=== PATIENT | female | born 1985 | race Caucasian/White ===

== ENCOUNTER 2016-06-25 14:07 | Day surgery (SDC) | payer OTHER ==
[2016-06-25] VITALS (9 sets, daily range): BP systolic 130–152; BP diastolic 73–89; PULSE 86–94; RESP 12–17; O2SAT 98–100
[~2016-06-25] VITALS: Ht 172.7 cm; Wt 197.7 kg
[2016-06-25] MEDS ORDERED: Ketamine 10 mg/mL 20 mL Inj ONE (14:08)
[2016-06-25] MEDS ORDERED: Propofol 10,000 mCg/mL 20 mL Inj ONE (14:08)
[2016-06-25] MEDS ORDERED: fentaNYL-PF 50 mCg/mL 2 mL Inj ONE (14:08)
[2016-06-25] MEDS ORDERED: Lactated Ringer's 1,000 ML IV ONE (14:30)
[2016-06-25] MEDS ORDERED: AMOX-366 PO (15:09)
[2016-06-25] MEDS ORDERED: IBUP200C PO (15:09)
[2016-06-25] MEDS ORDERED: Bupivacaine-MPF 0.25%/EPI 30 mL Inj INFILTRATE ONE (17:29)
[2016-06-25] MEDS ORDERED: Ondansetron 2 mg/mL 2 mL Inj IVPUSH PRN (17:45)
[2016-06-25] MEDS ORDERED: EPHEDrine Sulfate 50 mg/mL Inj IVPUSH PRN (17:45)
[2016-06-25] MEDS ORDERED: Lactated Ringer's 500 ML IV PRN (17:45)
[2016-06-25] MEDS ORDERED: Dexamethasone 4 mg/mL Inj IVPUSH PRN (17:45)
[2016-06-25] MEDS ORDERED: HYDROmorphone 1 mg/mL Inj IVPUSH PRN (17:45)
[2016-06-25] MEDS ORDERED: Lactated Ringer's 1,000 ML IV SCH (17:45)
[2016-06-25] MEDS ORDERED: MetoCLOpramide 5 mg/mL 2 mL Inj IVPUSH PRN (17:45)
[2016-06-25] MEDS ORDERED: Phenylephrine 10,000 mCg/mL Inj IVPUSH PRN (17:45)
--- NOTE | 2016-06-25 17:45 | PCM.HPANE ---
Patient Data Surgeon Admitting Provider: Attending Provider:Ron Olmos MD Primary Care Physician:Srinivasan Other Provider:Evita Leyva Anesthesia Reason for Visit Left Breast Abscess Ht/WT & BMI Height (Feet): 5 Height (Inches): 8 Weight (Kilograms): 197.7 Body Mass Index 66.00 Allergies Coded Allergies: No Known Drug Allergies (Verified Allergy, Unknown, 06/25/16) Past Anesthesia History Anesthesia History: Positive for:: Abnormal Airway, Difficult Intubation ( possibly, given BMI of 66), Denies:: Anesthesia Reactions, Fam Anesthesia Reaction, Fam Malignant Hypertherm, Malignant Hyperthermia Diabetes History Hx Diabetes?: No MRSA MRSA: Yes Medications Hypertension Medication: No Home Meds Incl Beta Precious: No Reported Medications Amoxicillin/Clav K 875-125 mg (Augmentin 875-125 mg)1 Each Tablet1 Tablet PO BID #20 TABLET Ref 0 06/25/16 Ibuprofen 200 Mg [id number] Mg PO QID PRN For Pain Ref 0 06/25/16 History History of ENT Problems?: Yes HEENT History: Positive for:: Abnormal Airway Denies:: Cataracts Difficult Intubation Dysphagia Glaucoma Hearing Problem Sinus Problem TMJ Denture Type: None Teeth Condition: Within Normal Limits Hx of Heart Problems?: No Cardiovascular History: Denies:: AICD Abdominal Aortic Aneurism Atrial Fibrillation Cardiac Surgery Chest Pain Congestive Heart Failure Coronary Artery Disease Edema Heart Murmur Hypertension Irregular Heartbeat Pacemaker Peripheral Vascular Rheumatic Fever Thrombophlebitis Valvular Heart Disease Hx of Respiratory Problem?: No Respiratory History: Positive for:: Asthma (CHILD INDUCED ASTHMA ) Denies:: COPD Chest Surgery Cough Dyspnea Emphysema Hemoptysis Oxygen Administration Pneumonia Pulmonary Embolism Tuberculosis Use of C-PAP Machine Use of Inhalers / NEBS Hx Neurologic Problems?: No Neurological History: Denies:: Alzheimer's Disease CVA Dementia Dizziness Headaches Multiple Sclerosis Parkinson's Disease Seizures TIA Hx of GI Problems?: No Hx of Problems?: No Genitourinary History: Denies:: HX of Hemodialysis Kidney Stones Urinary Tract Infection HX of Peritoneal Dialysis: No Female Hx: Positive for:: Problems with Breasts? (LEFT BREAST MASTITIS) Denies:: Currently Endometriosis Pelvic Inflammatory Skin History: Positive for:: History Skin Disorders? (MRSA HISTORY) Denies:: Pressure Ulcers Hx Musculoskeletal Problems?: No Musculoskeletal History: Denies:: Back Injury Degenerative Joint Fibromyalgia Joint Replacement Musculoskeletal Trauma Myasthenia Gravis Osteoarthritis Rheumatoid Arthritis Systemic Lupus Hx of Psycho/Social Problems?: No Psycho Social History: Positive for:: Hx Depression (CURRENTLY NOT TAKING MEDICATIONS) Denies:: Anxiety Bipolar Disorder Suicide Attempt Hx Surgeries?: Yes (CSECTION, TA) Hx Any Other Health Problems?: No Other History: Positive for:: Hospitalization (C SECTION, T&A) Denies:: Cancer Endocrine Disease Thyroid Disease History Blood Transfusions: Positive for:: Accept Blood Products? Denies:: Blood Transfuse Reaction Blood Transfusions Hx Diabetes: No Hx Alcohol Use: Yes (SOCIALLY ON OCCASSION)Hx Substance Use: NoHave You Smoked inLast 12 mo: Yes (MARIJUANA) Stop/Bang Treated for Sleep Apnea?: No Do You Have a CPAP Machine?: No S-Snoring: Do You Snore Loudly: Yes T-Tired: feel tired, fatigued: Yes O-Obsered: Observed not breath: No P-Blood Pressure: treated: No B- Body Mass Index > 35 kg/m2: No A- Age over 50: No N- Neck Large Circumference: No G- Gender Male: No TROY Total Score: 2 TROY Risk Assessment: Low Risk, <3 Yes Risk Assessment Category Category 1A: Patient has history of documented sleep apnea, and HAS NOT received any narcotic, sedative or anesthesia administration during this stay. Category 1B: Patient has history of documented sleep apnea, and HAS received any narcotic , sedative or anesthesia administration during this stay Category 2: Patient has SUSPECTED Obstructive Sleep Apnea, and HAS received any narcotic , sedative or anesthesia administration during this stay. Category 3: Patient has SUSPECTED Obstructive Sleep Apnea and HAS NOT received narcotic, sedative or anesthesia administration during this stay. Category 4: Outpatient in Procedural Areas with known sleep apnea or who screen positive for High Risk via the STOP/BANG questionnaire. Exam Exam Vital Signs Vital Signs Date Time Temp Pulse Resp B/P Pulse Ox O2 Delivery O2 Flow Rate FiO2 06/25/16 14:30 36.5 90 16 138/77 100 Room Air General Appearance: Alert, Oriented X3, Cooperative, Mild Distress HEENT/AIRWAY: MP 2 Lungs: Clear to Auscultation, Normal Air Movement Heart: Exam Unremarkable, Regular Rate/Rhythm, No Murmurs/Rubs/Gallops Meds/Labs/Diagnostics Admission Meds Current Medications [facility] Last administered on t 14:30; Start 06/25/16 at 14:30; Stop 06/25/16 at 15:07; Status DC Plan Impression Patient chart reviewed, patient interviewed and anesthestic plan with risks, benefits, and alternatives discussed, and informed consent obtained. ASA Physical Status: ASA3 Severe Disease (BMI 67) Anesthetic Plan: MAC Bene/Risks/Altern/Consents: Yes HP Complete Prior to Induction: Yes Harshad Morrissey MD June 25, 2016 17:45
[2016-06-25] MEDS ORDERED: oxyCODONE-Acetamin 5-325 mg Tablet PO PRN (17:55)
--- NOTE | 2016-06-25 17:55 | PCM.DISURG ---
Surgical Discharge Instruction Date of Service June 25, 2016 Dates of Hospitalization Date of Hospital Admission Providers Admitting Physician: Primary Care Physician: Srinivasan Attending Physician: Ron Olmos MD Discharge Diagnosis Discharge Diagnosis Left breast abscess Diet Discharge Diet: No restrictions Activity Discharge Activity-General: No restrictions Dressing and Incisional Care Dressing Instructions: change outer dressing every 8 hours, or more frequently as needed Hygiene: May shower Follow Up Plan Follow Up Plan In the wound healing center on Thursday or Thursday for a wound check, and possible drain removal Call your provider for: Fever (over 101.5) Ron Olmos MD June 25, 2016 17:55
[2016-06-25] MEDS: fentaNYL-PF 50 mCg/mL 2 mL Inj IVPUSH PRN ×2 (18:05→18:20)
--- NOTE | 2016-06-25 20:23 | PCM.SURGOP ---
Surgical Operative Report Date of Service: June 25, 2016 Pre Operative Diagnosis Left breast abscess Post Operative Diagnosis Same Procedure: Incision and drainage of left breast abscess, complex Surgeon and Interactive Graphic Designer: Surgeon: Ron Olmos MD Assistants: Pardeep Mares PA-C Indication for Procedure 30-year-old woman with morbid obesity with a body mass index of 66, who has been treated as an outpatient and [facility] for left breast abscess, who came back today to the surgery clinic today with increasing pain, induration, and erythema of the left breast despite oral antibiotics. Because of her body mass index, she could not be cared for there surgically, and she was transferred to [facility] for outpatient incision and drainage of her left breast abscess. After discussion of risks and benefits, she agreed to proceed. Findings: There was a retroareolar cavity measuring approximately 2 cm containing some purulent fluid, but mainly thin fluid, consistent with MRSA infection. Procedure Details Procedural sedation was achieved using light monitored anesthesia care. The left breast was prepped and draped in wide sterile fashion. A procedural pause was performed according to the SCOAP checklist, and all were found to be in agreement. The skin was anesthetized with quarter percent Marcaine with epinephrine around the left side of the areolar border. She did not tolerate this very well. Once the skin had been adequately anesthetized, a curvilinear circumareolar incision was made on the left lateral side. Dissection was carried through the subcutaneous tissue into the retroareolar space, as the abscess cavity was entered and drained. Loculations were broken up. Fluid was aspirated and sent for culture and Gram stain. A lacrimal duct probe was passed through the nipple orifice which was also spontaneously draining, to make sure that they communicated, and that there were no additional pockets of infection. The cavity was irrigated and suctioned. The wound was then packed with a half-inch Rexford drain, which was secured to the skin with interrupted 3-0 nylon suture. Sterile dressings were applied. At the end of the case all needle and sponge counts were correct 2. The patient was awakened from anesthesia without difficulty, and taken to the recovery room in satisfactory condition, having tolerated the procedure well. Complications There were no periprocedural complications identified. Surgical Specimen Removed: No Specimen sent to Pathology: Not applicable Anesthetic Plan: MAC Grafts, Implants: None Output, Estimated Blood Loss: 30 Blood Administration during vazquez: No Drains: Pen Jailyn Catheters: None copies to: Zion Horan MD, Joshua D MD June 25, 2016 20:23
--- NOTE | 2016-06-26 08:15 | PCM.ANEP1 ---
Post Anesthesia Phase 1 PACU Phase 1 Assessment Date of Service: June 25, 2016 Anesthetic Administered: MAC Level of Alertness: Awake, talking PECK's with Equal Strength: Yes Pain: No Nausea or Vomiting: No Oxygen Delivery: Nasal Cannula Lungs: Clear to Auscultation, Normal Air Movement Dermatome Level: Full Sensation Complications: No Follow up Care: No Patient Instructions Provided: Yes Harshad Morrissey MD June 26, 2016 08:15
== END 2016-06-25 23:59 | disposition home or self-care (01) ==
LOC: SAS 14:07
PROVIDERS: ATTEND Student in an Organized Health Care Education/Training Program
DX: N61.1 Abscess of the breast and nipple (principal); N63 Unspecified lump in breast; E28.2 Polycystic ovarian syndrome; F32.9 Major depressive disorder, single episode, unspecified; F12.90 Cannabis use, unspecified, uncomplicated; E66.01 Morbid (severe) obesity due to excess calories; Z68.44 Body mass index [BMI] 60.0-69.9, adult; Z86.14 Personal history of Methicillin resistant Staphylococcus aureus infection
CPT/HCPCS: 19020; 87070; 87075; 87186; 87205; J0690; J1885; J2250; J3010; J7120